=== PATIENT | female | born 1975 | race Caucasian/White ===

== ENCOUNTER 2016-10-18 13:53 | Emergency (ER) | payer OTHER ==
[2016-10-18 14:04] VITALS: BP 147/70; PULSE 80; TEMP 98.4; BMI 38.6
[2016-10-18] MEDS ORDERED: KETOROLAC TROMETHAMINE 60 MG/2 ML VIAL IM ONE (17:34)
[2016-10-18] MEDS ORDERED: KETOROLAC TROMETHAMINE 60 MG/2 ML VIAL ONE (17:36)
--- NOTE | 2016-10-18 17:36 | PDOC ---
History of Present Illness - General Chief Complaint: Injury Stated Complaint: FALL Time Seen by Provider: 10/18/16 15:39 History Source: Patient Exam Limitations: No Limitations - History of Present Illness Initial Comments: 10/18/16 17:39 Chief complaint: Fall left sided neck pain, left lower back, left knee pain History of present illness: Patient is a 41-year-old female with history of asthma here today after falling at her job this morning slipping on ice and falling forward febrile with both arms. Patient reports she thinks she twisted her lower back and left side and left lateral neck when falling she denies hitting her head. Patient reports her right leg went backwards she fell onto her left knee. Patient reports that left knee pain, left lateral neck pain and left lower back pain is currently a 10 out of 10. Patient denies any numbness of left arm or any radiation of pain down the left arm or any numbness of the left leg. Patient has not taken anything for pain. 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 She denies any incontinency or any saddle anesthesia. 10/18/16 18:00 Occurred: reports: this morning Severity: reports: severe Pain Location: reports: back (left ), lower extremity (left knee ), neck (left lateral neck ) Method of Injury: Yes: fall Modifying Factors: improves with: None Loss of Consciousness: no loss of consciousness Associated Symptoms (Fall): denies symptoms, neck pain (left lateral neck ), other (left lower back, left knee pain) Past History - Past Medical History Allergies/Adverse Reactions: Allergies Allergy/AdvReac Type Severity Reaction Status Date / Time No Known Allergies Allergy Verified 10/18/16 14:00 Home Medications: Ambulatory Orders Methocarbamol [Robaxin -] 750 mg PO Q12H PRN #14 tablet 10/18/16 Naproxen [Naprosyn -] 500 mg PO BID PRN #14 tablet MDD 2 10/18/16 Asthma: Yes Cancer: No Cardiac Disorders: No Diabetes: Yes (GDM;diet controlled) HTN: No Seizures: No Thyroid Disease: No - Immunization History Immunization Up to Date: Yes - Psycho/Social/Smoking Cessation Hx Anxiety: No Suicidal Ideation: No Smoking History: Former smoker Have you smoked in the past 12 months: No Information on smoking cessation initiated: No Hx Alcohol Use: No Drug/Substance Use Hx: No Substance Use Type: None Hx Substance Use Treatment: No Review of Systems - Review of Systems Able to Perform ROS?: Yes Constitutional: No: Symptoms Reported HEENTM: No: Symptoms Reported Respiratory: No: Symptoms reported Cardiac (ROS): No: Symptoms Reported ABD/GI: No: Symptoms Reported : No: Symptoms Reported Musculoskeletal: Yes: Back Pain (left sided ), Joint Pain (left knee), Neck Pain (left lateral neck ) Integumentary: No: Symptoms Reported Neurological: No: Symptoms reported *Physical Exam - Vital Signs Last Vital Signs Temp Pulse Resp BP Pulse Ox 98.4 F 80 20 147/70 99 10/18/16 14:00 10/18/16 14:00 10/18/16 14:00 10/18/16 14:00 10/18/16 14:00 - Physical Exam General Appearance: Yes: Appropriately Dressed Neck: positive: Decreased range of motion (all directions), Tender lateral ( left lateral ). negative: Lymphadenopathy (R), Lymphadenopathy (L), Rigidity, Tender midline Respiratory/Chest: positive: Lungs Clear, Normal Breath Sounds. negative: Chest Tender, Respiratory Distress Cardiovascular: positive: Regular Rhythm, Regular Rate, S1, S2 Vascular Pulses: Doralis-Pedis (L): 4+ Musculoskeletal: positive: Normal Inspection, Decreased Range of Motion (from waist, ), Other (left lower back pain ). negative: CVA Tenderness, CVA Tenderness (R), CVA Tenderness (L), Vertebral Tenderness Extremity: positive: Normal Capillary Refill, Normal Inspection, Normal Range of Motion, Tender (left knee anterior ) Integumentary: positive: Normal Color Neurologic: positive: Alert, Normal Response, Motor Strength 5/5 (upper b/l, lower extremities motor strength 4/4). negative: Respond to painful stimul, Responsive Deep Tendon Reflexes: Knee (L): 3+, Knee (R): 3+ ED Treatment Course - ADDITIONAL ORDERS Additional order review: Laboratory Results 10/18/16 16:20 Urine HCG, Qual Positive - RADIOLOGY Radiology Studies Ordered: Category Date Time Status KNEE 3 POS-LEFT [RAD] Stat Radiology 10/18/16 17:34 Ordered SPINE-CERVICAL [RAD] Stat Radiology 10/18/16 17:34 Ordered SPINE-LUMBAR SACRAL [RAD] Stat Radiology 10/18/16 17:34 Ordered Medical Decision Making - Medical Decision Making 10/18/16 17:42 Patient is a 41-year-old female with history of asthma here today after falling at her job this morning slipping on ice and falling forward febrile with both arms. Patient reports she thinks she twisted her lower back and left side and left lateral neck when falling she denies hitting her head. Patient reports her right leg went backwards she fell onto her left knee. Patient reports that left knee pain, left lateral neck pain and left lower back pain is currently a 10 out of 10. Patient denies any numbness of left arm or any radiation of pain down the left arm or any numbness of the left leg. Patient has not taken anything for pain. 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 She denies any incontinency or any saddle anesthesia. She denies any chance of states that she had a hysterectomy. Fall, left knee pain, left lateral neck pain, left lower back pain left knee contusion PLAN: Urine hCG +however pt. denies giving any urine sample prior will repeat urine hcg 2nd urine negative for urinalysis xray left knee no layo abnormality noted per Dr. Lawler xray spine cervical straightening of normal cervical canal, moderate degenerative disc at C 6-7, with limited anterior and minimal posterior spur formation no acute dislocation or fracture noted per Dr. Murcia xray spine lumbar sacral no abnormality noted per 10/18/16 17:45 Toradol 60 mg IM will discharge on Naprosyn 500 mg bid prn pain # 14 tabs flexeril 10 mg q 8 hrs prn muscle spasm # 21 and reported that this does not work for her will change to Skelaxin 800 mg twice a day when necessary muscle spasm sent to pharmacy 14 tablets however they called to state that this is not covered by her insurance changed to Robaxin 750 every 12 hours when necessary muscle spasm 14 tablets 10/18/16 17:53 10/18/16 18:07 10/18/16 18:53 Laboratory Tests 10/18/16 10/18/16 16:20 18:07 Urine Color Yellow Urine Appearance Cloudy Urine pH 7.0 Ur Specific [place] 1.016 Urine Protein Negative Urine Glucose (UA) Negative Urine Ketones Negative Urine Blood Negative Urine Nitrite Negative Urine Bilirubin Negative Urine Urobilinogen Negative Ur Leukocyte Esterase Negative Urine HCG, Qual Positive 10/18/16 18:55 10/18/16 18:56 10/18/16 18:57 10/18/16 19:54 10/18/16 19:56 10/18/16 20:23 *DC/Admit/Observation/Transfer Diagnosis at time of Disposition: Neck pain on left side, Knee pain, left anterior Fall Qualifiers: Encounter type: initial encounter Qualified Code(s): W19.XXXA - Unspecified fall, initial encounter Low back pain Qualifiers: Chronicity: acute Back pain laterality: left Sciatica presence: without sciatica Qualified Code(s): M54.5 - Low back pain - Discharge Dispostion Disposition: HOME Condition at time of disposition: Stable - Prescriptions Prescriptions: Naproxen [Naprosyn -] 500 mg PO BID PRN #14 tablet MDD 2 PRN Reason: Pain Methocarbamol [Robaxin -] 750 mg PO Q12H PRN #14 tablet PRN Reason: Muscle Spasms - Referrals Referrals: Abby Briceño [Primary Care Provider] - Ike Bender MD [Staff Physician] - - Patient Instructions Additional Instructions: Apply ice to left knee every 2 hours while awake today and tomorrow Avoid Strenuous activities and exercise Follow-up with orthopedist for further evaluation if pain continues next week Return to emergency room if symptoms worsen any numbness of leg or groin Patient voiced understanding of discharge instructions and all questions were answered
[2016-10-18 18:33] LABS: URINE APPEARANCE CLOUDY; URINE BILIRUBIN NEGATIVE (NEGATIVE); URINE BLOOD NEGATIVE (NEGATIVE); URINE COLOR YELLOW; URINE GLUCOSE (UA) NEGATIVE (NEGATIVE); URINE KETONE NEGATIVE (NEGATIVE); URINE LEUK ESTERASE NEGATIVE (NEGATIVE); URINE NITRITE NEGATIVE (NEGATIVE); URINE PROTEIN NEGATIVE (NEGATIVE); URINE UROBILINOGEN NEGATIVE E.U./dl (0.2-1.0)
== END 2016-10-18 20:27 | disposition home or self-care (01) ==
LOC: JERFT 13:53
PROC: 3E0233Z Introduction of Anti-inflammatory into Muscle, Percutaneous Approach (ICD-10-PCS; principal; 2016-10-18)
DX: M54.2 Cervicalgia (principal); S80.02XA Contusion of left knee, initial encounter; M54.5 Low back pain; W00.2XXA Other fall from one level to another due to ice and snow, initial encounter; Y93.89 Activity, other specified; Y92.69 Other specified industrial and construction area as the place of occurrence of the external cause; Y99.0 Civilian activity done for income or pay
CPT/HCPCS: 72050-TC; 72100-TC; 73562-TC-LT; 81003; 84703; 99281-25

== ENCOUNTER 2023-04-04 16:56 | Inpatient (IN) | payer OTHER ==
[2023-04-04] MEDS ORDERED: SODIUM CHLORIDE 500 ML IV STA (18:11)
[2023-04-04] MEDS ORDERED: FAMOTIDINE 20 MG/50 ML IVPB 20 MG/50 ML MG IVPB ONE ×2 (18:11→18:24)
[2023-04-04] MEDS ORDERED: ACETAMINOPHEN 1000 MG/100 ML BAG IVPB ONE (18:11)
[2023-04-04] MEDS ORDERED: MAG HYDROX/AL HYDROX/SIMETH 30 ML UNIT-DOSE CUP PO ONE (18:12)
[2023-04-04] MEDS ORDERED: MAG HYDROX/AL HYDROX/SIMETH 30 ML UNIT-DOSE CUP ONE (18:23)
[2023-04-04] MEDS ORDERED: ACETAMINOPHEN INJECTION 100 ML IVPB ONE (18:23)
[2023-04-04 18:50] LABS: BASO % 0.5 % (0-2.0); HEMOGLOBIN 13.9 GM/dL (10.7-15.3); LYMPH % 16.6 % (8-40); MCH 30.3 pg (25.7-33.7); MCHC 33.2 g/dl (32.0-36.0); MEAN CELL VOLUME 91.2 fl (80-96); MEAN PLT VOLUME 6.8 fl (7.5-11.1); MONO % 6.8 % (3.8-10.2); NEUT % 74.1 % (42.8-82.8); PLATELET COUNT 301 10^3/uL (134-434); RBC 4.61 M/mm3 (3.60-5.2); RDW 14.5 % (11.6-15.6)
[2023-04-04 18:52] LABS: EPI CELLS 13 /uL (0-25.1); HYALINE CASTS 1 /uL (0-3.1); PH,URINE 6.5 (5.0-8.0); URINE APPEARANCE CLOUDY; URINE BACTERIA 267 /uL (0-1359); URINE BILIRUBIN NEGATIVE (NEGATIVE); URINE COLOR ORANGE; URINE GLUCOSE (UA) NEGATIVE (NEGATIVE); URINE KETONE NEGATIVE (NEGATIVE); URINE LEUK ESTERASE TRACE (NEGATIVE); URINE NITRITE NEGATIVE (NEGATIVE); URINE PROTEIN 1+ (NEGATIVE); URINE RBC 10489 /uL (0-23.9); URINE UROBILINOGEN 0.2 mg/dL (0.2-1.0); URINE WBC 26 /uL (0-25.8)
[2023-04-04 19:06] LABS: POTASSIUM 4.5 mmol/L (3.5-5.1)
[2023-04-04 19:08] LABS: BLOOD UREA NITROGEN 17.4 mg/dL (7-18); CALCIUM 9.7 mg/dL (8.5-10.1)
[2023-04-04 19:09] LABS: ALBUMIN 3.6 g/dl (3.4-5.0)
[2023-04-04 19:13] LABS: BILIRUBIN,TOTAL 0.2 mg/dL (0.2-1); TOT PROT 7.5 g/dl (6.4-8.2)
[2023-04-04] MEDS ORDERED: METOCLOPRAMIDE HCL INJECTION 10 MG/2 ML VIAL IVPUSH ONE (19:57)
[2023-04-04] MEDS ORDERED: ONDANSETRON 4 MG/2 ML VIAL IVPUSH ONE (20:00)
[2023-04-04] MEDS ORDERED: morphine CARPU-JECT 4 MG/1 ML DISP.SYRIN IVPUSH ONE (20:00)
[2023-04-04] MEDS ORDERED: KETOROLAC TROMETHAMINE 15 MG/ML VIAL IVPUSH ONE (20:00)
[2023-04-04] MEDS ORDERED: ONDANSETRON 4 MG/2 ML VIAL ONE (20:07)
[2023-04-04] MEDS ORDERED: KETOROLAC TROMETHAMINE 15 MG/ML VIAL ONE (20:27)
[2023-04-04] MEDS ORDERED: CEFTRIAXONE 1 GM/50 ML BAG ONE (20:30)
[2023-04-04] MEDS ORDERED: TAMSULOSIN HCL 0.4 MG CAP PO ONE (20:51)
[2023-04-04] MEDS ORDERED: TAMSULOSIN HCL 0.4 MG CAP ONE (21:39)
[2023-04-04] MEDS ORDERED: KETOROLAC TROMETHAMINE 15 MG/ML VIAL IVPUSH PRN (21:39)
[2023-04-04] MEDS: SODIUM CHLORIDE 1,000 ML IV SCH (21:48)
[2023-04-04] MEDS: TOPIRAMATE 200 MG TABLET PO SCH (22:44)
[2023-04-04] MEDS: AMITRIPTYLINE HCL 25 MG TABLET PO SCH (22:44)
[2023-04-05] MEDS: LEVOTHYROXINE NA 50 MCG TABLET (FP) PO SCH (06:07)
[2023-04-05] MEDS ORDERED: LEVOTHYROXINE NA 50 MCG TABLET (FP) PO SCH (07:00)
[2023-04-05] MEDS ORDERED: TAMSULOSIN HCL 0.4 MG CAP PO SCH (08:30)
[2023-04-05] MEDS: SODIUM CHLORIDE 1,000 ML IV SCH ×2 (08:56→12:23)
[2023-04-05 09:58] LABS: BASO % 0.8 % (0-2.0); EOS % 4.2 % (0-4.5); HEMATOCRIT 40.3 % (32.4-45.2); LYMPH % 19.2 % (8-40); MCH 30.6 pg (25.7-33.7); MCHC 32.4 g/dl (32.0-36.0); MEAN CELL VOLUME 94.4 fl (80-96); MEAN PLT VOLUME 7.3 fl (7.5-11.1); MONO % 8.4 % (3.8-10.2); NEUT % 67.4 % (42.8-82.8); PLATELET COUNT 272 10^3/uL (134-434); RBC 4.27 M/mm3 (3.60-5.2); RDW 14.3 % (11.6-15.6); WHITE BLOOD COUNT 7.1 K/mm3 (4.0-10.0)
[2023-04-05] MEDS ORDERED: CEFTRIAXONE 1 GM in DEXTROSE 5%-WATER - 50 ML IVPB SCH (10:00)
[2023-04-05 10:03] LABS: INR 0.91 (0.83-1.09); PROTHROMBIN TIME (PATIENT) 10.6 SEC (9.7-13.0)
[2023-04-05 10:11] LABS: POTASSIUM 4.4 mmol/L (3.5-5.1)
[2023-04-05 10:13] LABS: CALCIUM 9.1 mg/dL (8.5-10.1)
[2023-04-05 10:14] LABS: MAGNESIUM 2.3 mg/dL (1.8-2.4)
[2023-04-05 10:17] LABS: CREATININE 1.1 mg/dL (0.55-1.3); PHOSPHOROUS 4.8 mg/dL (2.5-4.9)
[2023-04-05] MEDS: TOPIRAMATE 200 MG TABLET PO SCH ×2 (10:35→21:18)
[2023-04-05] MEDS: CEFTRIAXONE 1 GM in DEXTROSE 5%-WATER - 50 ML IVPB SCH (20:15)
[2023-04-05] MEDS: AMITRIPTYLINE HCL 25 MG TABLET PO SCH (22:46)
[2023-04-06] MEDS ORDERED: MAGNESIUM CITRATE 300 ML BOTTLE PO ONE (04:43)
[2023-04-06] MEDS: LEVOTHYROXINE NA 50 MCG TABLET (FP) PO SCH (06:01)
[2023-04-06] MEDS: TAMSULOSIN HCL 0.4 MG CAP PO SCH (08:22)
[2023-04-06 09:33] LABS: BASO % 0.7 % (0-2.0); EOS % 3.8 % (0-4.5); HEMATOCRIT 40.8 % (32.4-45.2); HEMOGLOBIN 13.2 GM/dL (10.7-15.3); MCH 30.4 pg (25.7-33.7); MCHC 32.2 g/dl (32.0-36.0); MEAN CELL VOLUME 94.3 fl (80-96); MEAN PLT VOLUME 7.5 fl (7.5-11.1); MONO % 5.1 % (3.8-10.2); NEUT % 68.4 % (42.8-82.8); PLATELET COUNT 279 10^3/uL (134-434); RBC 4.33 M/mm3 (3.60-5.2); RDW 14.4 % (11.6-15.6); WHITE BLOOD COUNT 6.8 K/mm3 (4.0-10.0)
[2023-04-06 09:50] LABS: POTASSIUM 4.2 mmol/L (3.5-5.1)
[2023-04-06 09:52] LABS: CALCIUM 8.9 mg/dL (8.5-10.1)
[2023-04-06 09:53] LABS: BLOOD UREA NITROGEN 15.1 mg/dL (7-18)
[2023-04-06 09:56] LABS: CREATININE 0.8 mg/dL (0.55-1.3)
[2023-04-06] MEDS: POLYETHYLENE GLYCOL (HEALTHYLAX) 3350 17 GM PACKET PO SCH ×2 (10:23→21:38)
[2023-04-06] MEDS: TOPIRAMATE 200 MG TABLET PO SCH ×2 (10:25→21:38)
[2023-04-06] MEDS: CEFTRIAXONE 1 GM in DEXTROSE 5%-WATER - 50 ML IVPB SCH (12:24)
[2023-04-06] MEDS: SODIUM CHLORIDE 1,000 ML IV SCH (12:26)
[2023-04-06 12:41] VITALS: BMI 36.9
[2023-04-06] MEDS ORDERED: ACETAMINOPHEN 325 MG TABLET (FP) PO PRN (17:11)
[2023-04-06] MEDS: AMITRIPTYLINE HCL 25 MG TABLET PO SCH (21:38)
[2023-04-07] MEDS: SODIUM CHLORIDE 1,000 ML IV SCH ×3 (01:31→19:35)
[2023-04-07] MEDS: LEVOTHYROXINE NA 50 MCG TABLET (FP) PO SCH (06:04)
[2023-04-07] MEDS: TAMSULOSIN HCL 0.4 MG CAP PO SCH (08:03)
[2023-04-07 09:07] LABS: BASO % 0.6 % (0-2.0); EOS % 4.8 % (0-4.5); HEMATOCRIT 37.9 % (32.4-45.2); HEMOGLOBIN 12.4 GM/dL (10.7-15.3); LYMPH % 25.1 % (8-40); MCH 30.9 pg (25.7-33.7); MCHC 32.8 g/dl (32.0-36.0); MEAN CELL VOLUME 94.1 fl (80-96); MEAN PLT VOLUME 7.5 fl (7.5-11.1); MONO % 5.9 % (3.8-10.2); NEUT % 63.6 % (42.8-82.8); PLATELET COUNT 268 10^3/uL (134-434); RBC 4.02 M/mm3 (3.60-5.2); RDW 14.4 % (11.6-15.6); WHITE BLOOD COUNT 5.3 K/mm3 (4.0-10.0)
[2023-04-07 09:15] LABS: INR 0.96 (0.83-1.09); PROTHROMBIN TIME (PATIENT) 11.1 SEC (9.7-13.0)
[2023-04-07 09:17] LABS: ACTIVATED PTT 28.9 SECONDS (25.2-36.5)
[2023-04-07 09:33] LABS: POTASSIUM 4.9 mmol/L (3.5-5.1)
[2023-04-07 09:36] LABS: BLOOD UREA NITROGEN 14.6 mg/dL (7-18); CALCIUM 8.7 mg/dL (8.5-10.1)
[2023-04-07 09:39] LABS: CREATININE 0.8 mg/dL (0.55-1.3)
[2023-04-07 09:41] LABS: BILIRUBIN,TOTAL 0.4 mg/dL (0.2-1); TOT PROT 6.3 g/dl (6.4-8.2)
[2023-04-07] MEDS: POLYETHYLENE GLYCOL (HEALTHYLAX) 3350 17 GM PACKET PO SCH (10:34)
[2023-04-07] MEDS: TOPIRAMATE 200 MG TABLET PO SCH ×2 (10:38→21:27)
[2023-04-07] MEDS: CEFTRIAXONE 1 GM in DEXTROSE 5%-WATER - 50 ML IVPB SCH (10:38)
[2023-04-07] MEDS ORDERED: ONDANSETRON 4 MG/2 ML VIAL ONE (17:19)
[2023-04-07] MEDS ORDERED: MIDAZOLAM HCL 2 MG/2 ML SINGLE DOSE VIAL ONE (17:19)
[2023-04-07] MEDS ORDERED: ceFAZolin SODIUM 1 GM VIAL IVPB ONE (17:21)
[2023-04-07] MEDS ORDERED: KETOROLAC TROMETHAMINE 15 MG/ML VIAL IVPUSH PRN (19:21)
[2023-04-07] MEDS ORDERED: ACETAMINOPHEN 325 MG TABLET (FP) PO PRN (19:21)
[2023-04-07] MEDS ORDERED: AMITRIPTYLINE HCL 25 MG TABLET PO SCH (22:00)
[2023-04-08] MEDS: SODIUM CHLORIDE 1,000 ML IV SCH (00:52)
[2023-04-08] MEDS ORDERED: TAMSULOSIN HCL 0.4 MG CAP PO SCH (08:30)
[2023-04-08] MEDS: TOPIRAMATE 200 MG TABLET PO SCH (09:12)
[2023-04-08 09:15] LABS: POTASSIUM 4.4 mmol/L (3.5-5.1)
[2023-04-08 09:18] LABS: BLOOD UREA NITROGEN 13.9 mg/dL (7-18); CALCIUM 8.4 mg/dL (8.5-10.1)
[2023-04-08 09:22] LABS: CREATININE 0.8 mg/dL (0.55-1.3)
[2023-04-08 09:33] LABS: MEAN CELL VOLUME 93.9 fl (80-96); WHITE BLOOD COUNT 6.6 K/mm3 (4.0-10.0)
[2023-04-08 09:35] LABS: HEMATOCRIT 37.1 % (32.4-45.2); MCH 30.3 pg (25.7-33.7); MCHC 32.2 g/dl (32.0-36.0); MEAN PLT VOLUME 7.6 fl (7.5-11.1); PLATELET COUNT 265 10^3/uL (134-434); RBC 3.95 M/mm3 (3.60-5.2)
[2023-04-08] MEDS ORDERED: CEFTRIAXONE 1 GM in DEXTROSE 5%-WATER - 50 ML IVPB SCH (10:00)
[2023-04-08 14:39] VITALS: BP 112/58; PULSE 71; RESP 18; TEMP 98.3
== END 2023-04-08 16:55 | disposition home or self-care (01) | DRG 465 ==
LOC: JER 16:56 → JERBED 20:49 → J6S 23:30
PROVIDERS: ADMIT Internal Medicine; ATTEND Internal Medicine
PROC: 0TF Urinary System, Fragmentation (ICD-10-PCS; principal; 2023-04-07 17:15)
DX: N13.2 Hydronephrosis with renal and ureteral calculous obstruction (principal); N13.9 Obstructive and reflux uropathy, unspecified; E03.9 Hypothyroidism, unspecified; E66.9 Obesity, unspecified; Z68.36 Body mass index [BMI] 36.0-36.9, adult
CPT/HCPCS: 36415; 74176-TC; 80048; 80053; 81003; 83036; 83690; 83735; 84100; 85025; 85027; 85610; 85730; 86850; 86900; 86901; 93005; 93010; 99285-25

== ENCOUNTER 2023-05-17 08:46 | Day surgery (SDC) | payer OTHER ==
[2023-05-17 09:08] VITALS: BMI 39.2
[2023-05-17] MEDS ORDERED: ceFAZolin SODIUM 1 GM VIAL IVPB ONE (10:03)
[2023-05-17] MEDS ORDERED: ONDANSETRON 4 MG/2 ML VIAL IVPUSH PRN (10:34)
[2023-05-17] MEDS ORDERED: oxyCODONE HCL 5 MG TABLET PO PRN (10:34)
[2023-05-17] MEDS ORDERED: LACTATED RINGERS SOLUTION 1,000 ML IV SCH (10:45)
[2023-05-17 14:10] VITALS: RESP 18
[2023-05-17 14:11] VITALS: BP 123/75; PULSE 63; TEMP 97.6
== END 2023-05-17 16:16 | disposition home or self-care (01) ==
LOC: JER 08:46 → JASUSAT 09:34 → J6S 11:38 → JASUSAT 16:16
PROVIDERS: ATTEND Urology
PROC: BT1FYZZ Fluoroscopy of Left Kidney, Ureter and Bladder using Other Contrast (ICD-10-PCS; 2023-05-17)
PROC: 0TC78ZZ Extirpation of Matter from Left Ureter, Via Natural or Artificial Opening Endoscopic (ICD-10-PCS; principal; 2023-05-17 09:00)
PROC: 0T778DZ Dilation of Left Ureter with Intraluminal Device, Via Natural or Artificial Opening Endoscopic (ICD-10-PCS; 2023-05-17 09:00)
DX: N20.1 Calculus of ureter (principal)
CPT/HCPCS: 94760; 99285-25; C2617

== ENCOUNTER 2025-05-28 14:32 | Emergency (ER) | payer OTHER ==
[2025-05-28 14:44] VITALS: BP 129/71; PULSE 73; RESP 18; TEMP 98.4; BMI 43.6
[2025-05-28] MEDS ORDERED: KETOROLAC TROMETHAMINE 30 MG/1 ML VIAL ONE (15:39)
[2025-05-28 15:48] LABS: EPI CELLS >36 /uL (0-25.1); HCG,QUALITATIVE URINE Negative; HYALINE CASTS 1 /uL (0-3.1); URINE APPEARANCE CLEAR; URINE BACTERIA 4579 /uL (0-1359); URINE BILIRUBIN NEGATIVE (NEGATIVE); URINE COLOR YELLOW; URINE GLUCOSE (UA) NEGATIVE (NEGATIVE); URINE KETONE NEGATIVE (NEGATIVE); URINE LEUK ESTERASE TRACE (NEGATIVE); URINE NITRITE POSITIVE (NEGATIVE); URINE PROTEIN NEGATIVE (NEGATIVE); URINE RBC 43 /uL (0-23.9); URINE UROBILINOGEN 0.2 mg/dL (0.2-1.0); URINE WBC 44 /uL (0-25.8)
[2025-05-28] MEDS: SODIUM CHLORIDE 1,000 ML IV STA (15:50)
[2025-05-28] MEDS: KETOROLAC TROMETHAMINE 30 MG/1 ML VIAL IVPUSH ONE (15:50)
[2025-05-28 16:12] LABS: ABSOLUTE IMMATURE GRANULOCYTES 0.02 x10^3/uL (0.0-0.031); BASOPHILS # 0.05 x10^3/uL (0.01-0.08); EOSINOPHIL % 2.6 % (0.7-5.8); EOSINOPHILS # 0.20 x10^3/uL (0.04-0.36); MCHC 31.8 g/dl (32.2-35.5); MEAN CELL VOLUME 96.3 fl (79.4-94.8); MEAN PLT VOLUME 8.8 fl (9.4-12.3); MONOCYTE # 0.54 x10^3/uL (0.24-0.86); MONOCYTE % 6.9 % (4.7-12.5); RDW 14.3 % (12.2-17.1)
[2025-05-28 16:38] LABS: GLUCOSE,RANDOM 93.0 mg/dL (74-106); TOT PROT 7.6 g/dl (6.4-8.2)
[2025-05-28 16:40] LABS: CO2 26.0 mmol/L (21-32)
[2025-05-28 16:41] LABS: ALK PHOS 97.0 U/L (40-150)
[2025-05-28 16:44] LABS: CREATININE 0.98 mg/dL (0.55-1.3); SGOT/AST 22.0 U/L (5-34); SGPT/ALT 23.0 U/L (0-55)
[2025-05-28 17:03] LABS: HCV DIAGNOSTIC IN-HOUSE W/RFLX NON-REACTIVE (NONREACTIVE)
[2025-05-28 17:04] LABS: HIV INTERPRETATION NEGATIVE (NEGATIVE)
== END 2025-05-28 17:57 | disposition home or self-care (01) ==
LOC: JER 14:32
PROC: 3E0333Z Introduction of Anti-inflammatory into Peripheral Vein, Percutaneous Approach (ICD-10-PCS; principal; 2025-05-28)
PROC: 3E0337Z Introduction of Electrolytic and Water Balance Substance into Peripheral Vein, Percutaneous Approach (ICD-10-PCS; 2025-05-28)
DX: K57.92 Diverticulitis of intestine, part unspecified, without perforation or abscess without bleeding (principal); M54.50 Low back pain, unspecified; R30.0 Dysuria; R10.9 Unspecified abdominal pain
CPT/HCPCS: 36415; 74176-TC; 80053; 81003; 84703; 85025; 86803; 87086; 87389; 99285-25